=== PATIENT | female | born 1980 | race African-American/Black ===

== ENCOUNTER → 2018-09-01 | Outpatient (CLI) | payer OTHER ==
[~2018-09-01] MED LIST: ALEVE220 MG PO; DEPO-PROVE150 MG/1 M IM; IBUPROFEN 800800 MG PO; KEFLEX500 MG PO; NAPROSYN500 MG PO; NORCO 5-325 TA1 EACH PO; PERCOCET 10-321 EACH PO
[2018-09-01 08:27] LABS: CREATININE 1.1 mg/dL (0.6-1.0)
== END ==
LOC: PUL 07:52
PROVIDERS: Internal Medicine
DX: R40.0 Somnolence (principal); I70.1 Atherosclerosis of renal artery; R06.83 Snoring